=== PATIENT | female | born 1940 | race Caucasian/White ===

== ENCOUNTER 2018-09-12 01:27 | Emergency (ER) | payer OTHER ==
[~2018-09-12] VITALS: Ht 162.6 cm; Wt 68.9 kg
[2018-09-12 01:40] VITALS: BP 162/91
== END 2018-09-12 03:36 | disposition left against medical advice (07) ==
LOC: ER 01:31
DX: R00.2 Palpitations (principal); Z53.21 Procedure and treatment not carried out due to patient leaving prior to being seen by health care provider